=== PATIENT | male | born 1975 | race Caucasian/White ===

== ENCOUNTER 2022-10-19 19:44 | Emergency (ER) | payer OTHER, SELFPAY ==
[2022-10-19] VITALS (13 sets, daily range): BP systolic 111–132; BP diastolic 73–97; PULSE 74–91; RESP 11–20; TEMP 36.2; O2SAT 96–99
--- NOTE | 2022-10-19 19:45 | DI.RAD_ITS ---
Exam(s) XR PORTABLE CHEST AP EXAM: XR PORTABLE CHEST AP CLINICAL HISTORY: sob, hx of pulm fibrosis TECHNIQUE: 2D digital imaging was performed. COMPARISON: No exams were available for comparison FINDINGS: LUNGS: Suboptimally inflated. Minimal fibrotic changes. Question tiny right pleural effusion versus chronic pleural thickening. HEART: Normal size for projection. AORTA: Normal diameter. BONES: Degenerative disc changes are noted in the thoracic spine. Soft tissues: Unremarkable. IMPRESSION: Question tiny right pleural effusion. DATA REPOSITORY: RADIATION DOSE DELIVERED:
--- NOTE | 2022-10-19 19:58 | ED.GENADUL_ITS ---
Discharge Plan Disposition Patient Disposition: Home Condition: Stable Discharge Details Clinical Impression: Abnormal sensation of thorax Primary Care Provider: Portia Suresh ED Provider: Thom Salcido Home Meds and New Rx's Prescriptions: No Action NAC 600 mg Tablet 600 mg PO DAILY Discharge Instructions Instructions: Chest Pain (ED) Additional Instructions: At this time it is our recommendation that you stay for the repeat blood check. Respecting your wishes, you are leaving, but this is against our recommendations. Please follow-up as soon as possible for reassessment with your primary care provider and for stress testing. If you notice any worsening of your symptoms, or any new symptoms such as vomiting, diarrhea, fever, chills, shortness of breath, chest pain, numbness, weakness, or fainting , please return immediately to the emergency department for reevaluation. Please follow up with your primary care provider as soon as possible for reassessment and r eevaluation. As always, it was a pleasure participating in your medical care today. Medical Decision Making 47-year-old male with a past medical history of heart attack without any stents or intervention, pulmonary fibrosis, and no other known medical history presents today for evaluation of shortness of breath. Patient states that he went to his camp [employer] and was doing a significant amount of cleaning and organizing when he felt anxiety attack coming on secondary to the stress of the situation and the nature of things. He did have a few drinks today. He called a friend, who subsequently called EMS. He had a mild tightness in his chest but denies any shortness of breath, chest pain, bandlike sensation in his chest, tearing or ripping sensation, or heavy weight. He does not know what his previous heart attacks felt like. He does have a family history of cardiac disease. Currently states he feels fine and his goal for this evening is to go home. He denies any other complaints at this time. No other modifying factors. He does not smoke. Patient demonstrates evidence of mild intoxication, lungs are clear, exam is unremarkable, my vital signs are notably stable. Differential includes atypical cardiac etiology, symptoms inconsistent with PE. Anxiety certainly could be a cause of his symptoms but I feel will be a diagnosis of exclusion after work-up. We will evaluate for concerning etiologies, monitor closely and reassess. 10 PM Patient's laboratory work-up is returned relatively unremarkable. Patient's carboxyhemoglobin was checked on pulse oximetry, and it was only 7. Slightly elevated sodium, troponin normal, alcohol level 200. proBNP is 14 and normal and is thus not suggestive of cardiac strain or CHF. Bedside ultrasound however does demonstrate cardiac contractility around 30 to 35%. Patient is demanding to leave, and stating that he does not want to stay for the repeat troponin. His and daughter are at bedside, and with all 3 of them I discussed the risks and benefits of this. Patient understands but is still choosing this path. Symptoms appear clinically inconsistent with ACS at this time however I do feel that he certainly needs close follow-up with his primary care provider and potential outpatient stress testing. I suspect anxiety it was a component for his symptoms tonight however with his history further nonemergent testing is still indicated. Patient understands this. Patient is going home and family accepts care of the patient especially in light of the current scenario. I have extensively reviewed the treatment plan and discharge instructions with the patient and their family. I have addressed all patient concerns at this time. The patient and family was made aware of what symptoms to monitor for that would warrant a return to the emergency department. Discussed the plan with the patient and family, they demonstrate verbal understanding and agreement with our assessment and plan at this time. The documentation in this chart was dictated using [employer] dictation software. Please excuse any dictation errors. FINDINGS: Lungs: Linear bibasilar opacities. No chronic fibrotic changes are seen, no gross airspace consolidation. Pleural spaces: Possible trace right pleural fluid. No pneumothorax. Heart/Mediastinum: No significant cardiomegaly for position and projection. Bones/joints: No acute fracture. IMPRESSION: 1. Basilar subsegmental atelectasis. 2. Possible trace right pleural fluid. Thank you for allowing us to participate in the care of your patient. Dictated and Authenticated by: Ansley Contreras MD 10/19/2022 8:26 PM Eastern Time ([place] & [place]) Sign Out No HPI General Date/Time Provider Initiated Documentation: 10/19/22 19:49 . HPI Narrative: 47-year-old male with a past medical history of heart attack without any stents or intervention, pulmonary fibrosis, and no other known medical history presents today for evaluation of shortness of breath. Patient states that [facility] and was doing a significant amount of cleaning and organizing when he felt anxiety attack coming on secondary to the stress of the situation and the nature of things. He did have a few drinks today. He called a friend, who subsequently called EMS. He had a mild tightness in his chest but denies any shortness of breath, chest pain, bandlike sensation in his chest, tearing or ripping sensation, or heavy weight. He does not know what his previous heart attacks felt like. He does have a family history of cardiac disease. Currently states he feels fine and his goal for this evening is to go home. He denies any other complaints at this time. No other modifying factors. He does not smoke. Related Data Home Medications Medication Instructions Recorded Confirmed acetylcysteine 600 mg tablet (NAC) 600 mg PO DAILY 10/19/22 10/19/22 Allergies Allergy/AdvReac Type Severity Reaction Status Date / Time No Known Allergies Allergy Unverified 10/19/22 19:57 General Stated Complaint: GenMedical LINDA: 3 Review of Systems All systems reviewed & are unremarkable except as noted in HPI and below PFSH All Active Problems (Updated 10/19/22 @ 21:57 by Thom Salcido DO) Abnormal sensation of thorax (Acute) Medical History Myocardial infarction Pulmonary fibrosis Social History Smoking/Tobacco Use Status: Never Smoking risk assessment performed?: Yes Alcohol Intake: current Alcohol Intake frequency: a few times a month Alcohol type: hard liquor Drug use: Never Substance use type: does not use Do you feel safe at home: Yes Do you feel safe in your relationship?: Yes Exam Narrative Exam Narrative: 1.Const: Well-nourished, Well-developed, appearing stated age 2.Eyes: PERRL, no conjunctival injection, and symmetrical lids. 3.ENT: Atraumatic external nose and ears. Moist MM. Neck: Symmetric, trachea midline, No thyromegaly. 4.CVS: +S1/S2, No murmurs or gallops. Peripheral pulses 2+ and equal in all extremities. Brisk capillary refill in all extremities. 5.RESP: Unlabored respiratory effort. Clear to auscultation bilaterally. No wheezes rales or rhonchi 6.GI: Soft, Nontender/Nondistended, No hepatosplenomegaly. No guarding or rebound. 7.MSK: Normocephalic/Atraumatic, Extremities w/o deformity or ttp No cyanosis or clubbing, Normal movement of all extremities 8.Skin: Warm, Dry. No rashes or lesions. 9.Neuro: computerized table cutter II-XII grossly intact. Sensation grossly intact, no focal neurologic deficits. 10.Psych: (AAO) x3. Appropriate mood and affect Course Vital Signs Vital signs: Vital Signs Temperature 36.2 C L 10/19/22 19:47 Pulse 83 10/19/22 19:47 Respiratory Rate 16 10/19/22 19:47 Blood Pressure 132/97 H 10/19/22 19:47 Pulse Oximetry 96 10/19/22 19:47 Temperature 36.2 C L 10/19/22 19:47 Temperature Source Temporal Artery Scan 10/19/22 19:47 Pulse 83 10/19/22 19:47 Respiratory Rate 16 10/19/22 19:47 Blood Pressure 132/97 H 10/19/22 19:47 Pulse Oximetry 96 10/19/22 19:47 Pain Level 0 10/19/22 19:47
--- NOTE | 2022-10-19 20:00 | RT.EKG_ITS ---
APPROVED REPORT Exam: Resting ECG Reason for Exam: chest pain Patient Location: E HR:70 bpm ECG Measurements Heart Rate 70 AXIS WV 162 P 34 QRSd 89 QRS 21 QT 385 T 6 QTc 415 Conclusion Sinus rhythm...normal P axis, V-rate 60- 99 Phyisivcian: no stemi
[2022-10-19 20:07] LABS: Abs Immature Grans 0.01 10^3/uL (0.0-0.06); Absolute Basophil Count 0.06 10^3/uL (0.0-0.2); Absolute Eosinophil Count 0.26 10^3/uL (0.0-0.7); Absolute Lymphocyte Count 3.26 10^3/uL (1.2-3.4); Absolute Monocyte Count 0.45 10^3/uL (0.1-0.8); Absolute Neutrophil Count 3.13 10^3/uL (1.2-6.7); Basophils % 0.8; Eosinophils % 3.6; HCT 44.4 % (40.0-50.0); HGB 15.1 g/dL (13.5-17.5); Immature Grans % 0.1; Lymphocytes % 45.5; MCH 30.8 pg (27.0-33.0); MCV 90 fL (80-95); MPV 10.5 fL (8.0-11.0); Monocytes % 6.3; Neutrophils % 43.7; Platelet Count 217 10^3/uL (130-400); RBC 4.91 10^6/uL (4.36-5.78); RDW 11.6 % (11.8-14.1); RDW-SD 38.4 fL; WBC 7.17 10^3/uL (4.4-10.8)
[2022-10-19] MEDS: Normal Saline 500 ML IV (20:12)
[2022-10-19 20:14] LABS: TCO2 (Venous) 31 mmol/l (24-29); pCO2 (Venous) 54 mmHg (41-51); pH (Venous) 7.34 (7.31-7.41)
[2022-10-19 20:15] LABS: BE (Venous) 4 mmol/L (-2-3); HCO3 (Venous) 29 mmol/L (23-28); O2 Sat (Venous) 41 %
[2022-10-19 20:17] LABS: pO2 (Venous) 25 mmHg
--- NOTE | 2022-10-19 20:27 | DI.VRAD_ITS ---
PROCEDURE INFORMATION: Exam: XR Chest Exam date and time: 10/19/2022 20:00 Age: 47 years old Clinical indication: Shortness of breath; Patient HX: SOB, HX of pulm fibrosis TECHNIQUE: Imaging protocol: Radiologic exam of the chest. Views: 1 view. COMPARISON: No relevant prior studies available. FINDINGS: Lungs: Linear bibasilar opacities. No chronic fibrotic changes are seen, no gross airspace consolidation. Pleural spaces: Possible trace right pleural fluid. No pneumothorax. Heart/Mediastinum: No significant cardiomegaly for position and projection. Bones/joints: No acute fracture. IMPRESSION: 1. Basilar subsegmental atelectasis. 2. Possible trace right pleural fluid. Dictated and Authenticated by: Ansley Contreras MD. Ordering:VAMSI Tomas MD
[2022-10-19 20:39] LABS: ALT 54 U/L (16-63); AST 22 U/L (15-37); Albumin 3.9 g/dL (3.4-5.0); Alkaline Phosphatase 80 U/L (46-116); Anion Gap 7.2 mmol/L (3-11); BUN 15 mg/dL (7-18); Bilirubin, Total 0.4 mg/dL (0.2-1.0); CO2 30.8 mmol/L (21.0-32.0); Calcium 8.9 mg/dL (8.5-10.1); Chloride 109 mmol/L (98-107); ETHANOL BLOOD 214.5 mg/dL (<10); Estimated GFR 92.26 (mL/min/1.73m2); Glucose 102 mg/dL (74-106); NT-proBNP 14 pg/mL (<300); Potassium 3.7 mmol/L (3.5-5.1); Sodium 147 mmol/L (136-145); Total Protein 7.3 g/dL (6.4-8.2); Troponin I < 50 ng/L (<or=60)
--- NOTE | 2022-10-19 22:13 | NUR.NOTE ---
Referral to Care Management to f/u with patient and get PCP name to help expedite a f/u appt for abnormal sensation of thorax.Nursing Note:
== END 2022-10-19 22:03 | disposition home or self-care (01) ==
LOC: ER 22:12
PROVIDERS: Emergency Provider Student in an Organized Health Care Education/Training Program
DX: R09.89 Other specified symptoms and signs involving the circulatory and respiratory systems (principal); R07.89 Other chest pain; E87.0 Hyperosmolality and hypernatremia; I25.2 Old myocardial infarction
CPT/HCPCS: 36415; 80053; 82375; 82805; 93005; 93308; 96360; 99284; 71045; 80320; 83880; 84484; 85025; 93010; 99285